=== PATIENT | female | born 1980 | race Caucasian/White ===

== ENCOUNTER 2018-03-19 10:00 | Inpatient (IN) | payer OTHER ==
[~2018-03-19] VITALS: Ht 162.6 cm; Wt 92.1 kg
[~2018-03-19 10:00] MED LIST: ACIDOPHILUS1 EAC3 PO; ATENOLOL25 MG; ZANTAC150 MG PO
[2018-03-19] MEDS ORDERED: MOBIC7.5 MG PO (12:28)
[2018-03-19] MEDS ORDERED: CYMBALTA30 MG PO (12:28)
[2018-03-19] MEDS ORDERED: ROBAXIN500 MG PO (12:29)
[2018-03-29] MEDS ORDERED: IBUPROFEN800 MG PO (07:45)
[2018-03-29] MEDS ORDERED: CODE1TAB37 PO (07:45)
== END 2018-03-29 09:13 | DRG 743 ==
LOC: ADM 10:00 → EDSTATUS 10:00 → O/R 03-26 06:10 → OB/GYN 03-26 06:10 → SURH 03-26 10:00 → CIR.AMB 03-26 10:00 → EDSTATUS 03-26 10:00 → OB/GYN 03-26 14:20
PROVIDERS: Obstetrics & Gynecology
PROC: 0TJB8ZZ Inspection of Bladder, Via Natural or Artificial Opening Endoscopic (ICD-10-PCS; 2018-03-26)
PROC: 0UT90ZZ Resection of Uterus, Open Approach (ICD-10-PCS; principal; 2018-03-26 08:30)
PROC: 0UT70ZZ Resection of Bilateral Fallopian Tubes, Open Approach (ICD-10-PCS; 2018-03-26 08:30)
DX: D25.1 Intramural leiomyoma of uterus (principal); D25.0 Submucous leiomyoma of uterus; D25.2 Subserosal leiomyoma of uterus; N81.11 Cystocele, midline; N72 Inflammatory disease of cervix uteri

== ENCOUNTER 2018-10-30 20:15 | Emergency (ER) | payer OTHER ==
[~2018-10-30] VITALS: Ht 162.6 cm; Wt 90.7 kg
[~2018-10-30 20:15] MED LIST changes: +CODE1TAB37 PO; +CYMBALTA30 MG PO; +IBUPROFEN800 MG PO; +MOBIC7.5 MG PO; +ROBAXIN500 MG PO
== END 2018-10-30 23:20 | disposition home or self-care (01) ==
LOC: ER 20:15
DX: N64.4 Mastodynia (principal); M62.838 Other muscle spasm; M54.2 Cervicalgia

== ENCOUNTER 2018-11-21 08:51 | Emergency (ER) | payer OTHER ==
[~2018-11-21] VITALS: Ht 162.6 cm; Wt 80.7 kg
== END 2018-11-21 14:22 | disposition home or self-care (01) ==
LOC: ER 08:51
DX: K52.9 Noninfective gastroenteritis and colitis, unspecified (principal)

== ENCOUNTER 2018-12-25 13:24 | Emergency (ER) | payer OTHER ==
[~2018-12-25] VITALS: Ht 162.6 cm; Wt 89.8 kg
[2018-12-25] MEDS ORDERED: SKELAXIN800 MG PO (17:58)
[2018-12-25] MEDS ORDERED: KETO10TA2 PO (17:58)
== END 2018-12-25 18:51 | disposition home or self-care (01) ==
LOC: ER 13:24
DX: N39.0 Urinary tract infection, site not specified (principal); M54.5 Low back pain

== ENCOUNTER 2019-06-16 08:18 | Emergency (ER) | payer OTHER ==
[~2019-06-16] VITALS: Ht 162.6 cm; Wt 89.8 kg
[~2019-06-16 08:18] MED LIST changes: +KETO10TA2 PO; +SKELAXIN800 MG PO
[2019-06-16] MEDS ORDERED: CYCLOBENZAPRINE10 MG PO (10:31)
[2019-06-16] MEDS ORDERED: NAPROXEN500 MG PO (10:31)
== END 2019-06-16 13:26 | disposition home or self-care (01) ==
LOC: ER 08:18
DX: M54.89 Other dorsalgia (principal)